=== PATIENT | male | born 1985 | race Caucasian/White ===

== ENCOUNTER 2023-08-11 21:01 | Emergency (ER) | payer BC, OTHER ==
[~2023-08-11] VITALS: Ht 175.3 cm; Wt 115.7 kg
[2023-08-11] MEDS: LIDOCAINE 1% MDV 20ML VIAL SC ONE (22:40)
[2023-08-11] MEDS: AUGMENTIN 875 MG TAB PO ONE (22:40)
[2023-08-11] MEDS ORDERED: AMOX875T2 PO (23:48)
[2023-08-11 23:54] VITALS: BP 140/90; TEMP 98.2; O2SAT 97
== END 2023-08-12 00:09 | disposition home or self-care (01) ==
LOC: M ED 21:01
DX: S61.401A Unspecified open wound of right hand, initial encounter (principal); W54.0XXA Bitten by dog, initial encounter; Y92.019 Unspecified place in single-family (private) house as the place of occurrence of the external cause; Y93.9 Activity, unspecified; Y99.9 Unspecified external cause status; F10.10 Alcohol abuse, uncomplicated; Z79.2 Long term (current) use of antibiotics